=== PATIENT | female | born 1970 | race Caucasian/White ===

== ENCOUNTER 2019-06-18 17:37 | Inpatient (IN) | payer OTHER ==
[~2019-06-18] VITALS: Ht 157.5 cm; Wt 64.0 kg
[2019-06-18 17:51] VITALS: BP 139/91
[2019-06-18] MEDS ORDERED: MOBIC7.5 MG PO (17:53)
[2019-06-18 19:09] LABS: HEMATOCRIT 43.6 % (37.0-47.0); HEMOGLOBIN 14.8 gm/dL (12.0-15.0); MCH 29.9 pg (26.0-34.0); MCHC 33.9 g/dL (28.0-37.0); MCV 88.4 fL (80.0-100.0); MPV 8.9 fl. (7.2-11.1); NUCLEATED RBCS 0 /100WBC; PLATELET COUNT* 251 thou/uL (150-400); RBC 4.93 mil/uL (4.20-5.00); RDW-CV 13.3 % (10.5-14.5); WBC 9.8 thou/uL (4.0-11.0)
[2019-06-18 19:22] LABS: ANION GAP 13 mmol/L (7-16); BUN 17 mg/dL (7-18); CALCIUM 9.7 mg/dL (8.5-10.1); CHLORIDE 102 mmol/L (98-107); CO2 24 mmol/L (21-32); CREATININE 0.8 mg/dL (0.6-1.3); GLUCOSE 145 mg/dL (70-99); POTASSIUM 4.1 mmol/L (3.5-5.1); SODIUM 139 mmol/L (136-145)
[2019-06-18 19:30] LABS: ALBUMIN 4.4 g/dL (3.4-5.0); ALKALINE PHOSPHATASE 96 U/L (46-116); LIPASE 96 U/L (73-393); SGOT 22 U/L (15-37); SGPT 30 U/L (30-65); TOTAL BILIRUBIN 0.5 mg/dL (<0.1-1.0); TOTAL PROTEIN 7.5 g/dL (6.4-8.2)
[2019-06-18 19:38] LABS: ABSOLUTE LYMPHOCYTES 0.8 thou/uL (0.8-5.3); ABSOLUTE MONOCYTES 0.1 thou/uL (0.0-1.2); ABSOLUTE NEUTROPHILS 8.9 thou/uL (1.6-8.1)
[2019-06-18 19:39] LABS: PLATELET ESTIMATE ADEQUATE
[2019-06-18 19:45] LABS: TROPONIN-I LEVEL <0.06 ng/mL (<0.06)
[2019-06-18] MEDS ORDERED: ZOFRAN ODT4 MG SUBLING (20:41)
[2019-06-18 22:20] VITALS: BP 131/77
[2019-06-18 22:38] VITALS: BP 126/87
[2019-06-19 04:54] LABS: URINE BILIRUBIN NEGATIVE (Negative); URINE BLOOD 2+ (Negative); URINE CLARITY CLEAR; URINE COLOR YELLOW; URINE GLUCOSE-RANDOM NEGATIVE (Negative); URINE KETONES NEGATIVE (Negative); URINE LEUKOCYTES-REFLEX NEGATIVE (Negative); URINE NITRITE-REFLEX NEGATIVE (Negative); URINE PROTEIN NEGATIVE (Negative); URINE UROBILINOGEN 0.2 E.U./dl (0.2-1.0)
[2019-06-19 05:09] LABS: BACTERIA-REFLEX 1-9 Few /HPF (None Seen); CASTS None Seen /LPF (None Seen); CRYSTALS None Seen /LPF (None Seen); MUCUS 0-3 Light strn/LPF (None Seen); SQUAMOUS 0-3 Few /LPF (0-3); URINE RBC >20 Many /HPF (0-2); URINE WBC-REFLEX 0-5 Rare /HPF (0-5)
[2019-06-19 08:40] VITALS: BP 103/63
--- NOTE | 2019-06-19 10:05 | EKG ---
[place] [address] ELECTROCARDIOGRAM REPORT Name: SARANYA YAODYLLAN Calle Room: [address] ADM IN .R.#: [id number] Admission: 06/18/19 Attend Phys: Verena Mckee Discharge: Date of : 66 Report #: [id number] THIS REPORT FOR: //name// [facility] ED Test Date: 2019-06-18 Test Time: 19:13:20 Pat Name: FROYLAN YAO Department: Room: [facility] Gender: F Baby Attendant: : 1970 Requested By: Melanie Castaneda Order Number: [id number] MD: Yossi Layne Measurements Intervals [place] Rate: 76 P: 32 [place]: 142 QRS: 32 QRSD: 104 T: 33 QT: 371 QTc: 418 Interpretive Statements Sinus arrhythmia Left atrial enlargement Low voltage, precordial leads No previous ECG available for comparison Electronically Signed On 06-19-2019 10:05:07 CDT by Yossi Layne [email or web address] <ELECTRONICALLY SIGNED> By: Yossi Layne MD, [facility] 06/19/19 1005 12 12 Yossi Layne MD, FACC /EPI
[2019-06-19] MEDS ORDERED: NORCO 5-325 TA1 EAC1 PO (14:20)
[2019-06-19] MEDS ORDERED: ONDANSETRON HCL4 M2 PO (14:22)
[2019-06-19 14:23] VITALS: BP 103/63
[2019-06-19 15:25] VITALS: BP 103/63
== END 2019-06-19 14:43 | disposition home or self-care (01) | DRG 694 ==
LOC: M.ERS 17:37 → M.ORTHSURG 20:59 → M.TBA-ER 20:59 → M.ORTHSURG 22:25
PROVIDERS: Nurse Practitioner Family; ADMIT Family Medicine
DX: N20.2 Calculus of kidney with calculus of ureter (principal); Z88.6 Allergy status to analgesic agent; Z90.49 Acquired absence of other specified parts of digestive tract; Z79.899 Other long term (current) drug therapy

== ENCOUNTER 2020-10-12 07:28 | Emergency (ER) | payer OTHER ==
[~2020-10-12] VITALS: Ht 157.5 cm; Wt 68.0 kg
[~2020-10-12 07:28] MED LIST: MOBIC7.5 MG PO; NORCO 5-325 TA1 EAC1 PO; ONDANSETRON HCL4 M2 PO; ZOFRAN ODT4 MG SUBLING
[2020-10-12 07:43] LABS: URINE BLOOD 2+ (Negative); URINE CLARITY CLEAR; URINE COLOR YELLOW; URINE GLUCOSE-RANDOM NEGATIVE (Negative); URINE KETONES TRACE (Negative); URINE LEUKOCYTES-REFLEX 1+ (Negative); URINE NITRITE-REFLEX NEGATIVE (Negative); URINE PROTEIN NEGATIVE (Negative); URINE SPECIFIC GRAVITY 1.015 (1.005-1.030); URINE UROBILINOGEN 0.2 E.U./dl (0.2-1.0)
[2020-10-12 07:47] LABS: ICTOTEST (BILI CONFIRMATORY) Negative (Negative); URINE BILIRUBIN 1+ (Negative)
[2020-10-12 07:58] LABS: CASTS None Seen /LPF (None Seen); CRYSTALS None Seen /LPF (None Seen); MUCUS 4-6 Moderate strn/LPF (None Seen); SQUAMOUS 0-3 Few /LPF (0-3); URINE RBC 3-10 Few /HPF (0-2); URINE WBC-REFLEX 6-15 Few /HPF (0-5)
[2020-10-12 08:36] LABS: ABSOLUTE LYMPHOCYTES 1.2 thou/uL (0.8-5.3); ABSOLUTE MONOCYTES 0.6 thou/uL (0.0-1.2); ABSOLUTE NEUTROPHILS 8.2 thou/uL (1.6-8.1); BASOPHILS 0.3 %; HEMATOCRIT 45.1 % (37.0-47.0); HEMOGLOBIN 15.2 gm/dL (12.0-15.0); MCH 29.5 pg (26.0-34.0); MCHC 33.8 g/dL (28.0-37.0); MCV 87.4 fL (80.0-100.0); MONOCYTES 6.2 %; MPV 8.1 fl. (7.2-11.1); NUCLEATED RBCS 0 /100WBC; PLATELET COUNT* 285 thou/uL (150-400); POLYS 81.5 %; RBC 5.16 mil/uL (4.20-5.00); RDW-CV 13.4 % (10.5-14.5)
[2020-10-12 08:48] LABS: CALCIUM 9.4 mg/dL (8.5-10.1); CREATININE 0.9 mg/dL (0.6-1.3); POTASSIUM 3.8 mmol/L (3.5-5.1)
[2020-10-12 08:55] LABS: ALBUMIN 4.7 g/dL (3.4-5.0); TOTAL BILIRUBIN 0.7 mg/dL (<0.1-1.0); TOTAL PROTEIN 7.6 g/dL (6.4-8.2)
[2020-10-12] MEDS ORDERED: ZOFRAN ODT4 MG DISSOLVE (09:07)
[2020-10-12] MEDS ORDERED: BENTYL 10 MG CA10 M1 PO (09:07)
[2020-10-12] MEDS ORDERED: CIPRO500 M1 PO (09:07)
[2020-10-12 09:15] VITALS: BP 119/72
--- NOTE | 2020-10-12 13:52 | EKG ---
[place] [address] ELECTROCARDIOGRAM REPORT Name: FROYLAN YAO Room: [facility]#: [id number] Admission: 10/12/20 Attend Phys: Discharge: 10/12/20 Date of : 66 Date of Service: 10/12/2015 Report #: [id number] THIS REPORT FOR: //name// [facility] ED Test Date: 2020-10-12 Test Time: 08:15:55 Pat Name: FROYLAN YAO Department: Room: Gender: Estate Agent: : 1970 Requested By: Milo Sevilla Order Number: [id number] MD: Yossi Layne Measurements Intervals [place] Rate: 74 P: 74 [place]: 135 QRS: 74 QRSD: 104 T: 48 QT: 399 QTc: 443 Interpretive Statements Sinus rhythm Compared to ECG 06/18/2019 19:13:20 Sinus arrhythmia no longer present Atrial abnormality no longer present Electronically Signed On 10-12-2020 13:52:30 [employer] by Yossi Layne [email or web address] <ELECTRONICALLY SIGNED> By: Yossi Layne MD, FAC 10/12/20 1352 0815 08 Yossi Layne MD, [facility] /EPI
== END 2020-10-12 09:15 | disposition home or self-care (01) ==
LOC: M.ERS 07:28
PROVIDERS: Emergency Medicine Emergency Medical Services
DX: K52.9 Noninfective gastroenteritis and colitis, unspecified (principal); N39.0 Urinary tract infection, site not specified; Z88.5 Allergy status to narcotic agent; Z88.8 Allergy status to other drugs, medicaments and biological substances; Z90.49 Acquired absence of other specified parts of digestive tract